=== PATIENT | female | born 1970 | race Caucasian/White ===

== ENCOUNTER 2017-03-04 16:26 | Emergency (ER) | payer MEDICAID, OTHER ==
[~2017-03-04] VITALS: Wt 87.5 kg
[2017-03-04] MEDS ORDERED: KETOROLAC 15 MG INJ IM STA (16:48)
[2017-03-04] MEDS ORDERED: DIAZEPAM 5 MG TAB PO ONE (17:00)
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
[2017-03-04] MEDS ORDERED: DIAZ-90 PO (17:48)
[2017-03-04] MEDS ORDERED: TRAM50TA2 PO (17:48)
[2017-03-04 17:56] VITALS: BP 132/69; PULSE 73; RESP 20; TEMP 98.1
== END 2017-03-04 17:57 | disposition home or self-care (01) ==
LOC: FTE 16:26
DX: M54.5 Low back pain (principal); M54.12 Radiculopathy, cervical region
CPT/HCPCS: J1885; Z7610; 96372

== ENCOUNTER 2017-05-12 16:43 | Emergency (ER) | payer MEDICAID ==
[~2017-05-12] VITALS: Ht 152.4 cm; Wt 87.0 kg
[~2017-05-12 16:43] MED LIST: DIAZ-90 PO; TRAM50TA2 PO
[2017-05-12 16:53] VITALS: Ht 152.4 cm; Wt 87.0 kg
--- NOTE | 2017-05-12 19:01 | ERD ---
ER Documentation Chief Complaint Date/Time DATE: 05/12/17 TIME: 18:56 Chief Complaint right knee/leg pain HPI 46-year-old female presents here in emergency department for complaints of right knee pain that started 2 weeks ago. Patient is morbidly obese, states that the pain just when on suddenly. Patient feels a lump behind the right knee. Patient describes the pain as throbbing pain, 6/10 scale, is worse upon movement. Patient denies any numbness or tingling. Patient took Diclofenac at home with mild relief. ROS All systems reviewed and are negative except as per history of present illness. Medications Home Meds Active Scripts Diazepam* (Valium*) 5 Mg Tablet, 5 MG PO Q8 for myopathy , #10 TAB Prov:VANDA,TOMMY 03/04/17 Tramadol HCl (Tramadol HCl) 50 Mg Tablet, 50 MG PO Q8 Y for PAIN, #20 TAB Prov:VANDA,TOMMY 03/04/17 Allergies Allergies: Coded Allergies: No Known Allergy (Unverified , 03/04/17) PMhx/Soc Medical and Surgical Hx: pt denies Medical Hx, pt denies Surgical Hx History of Surgery: No Anesthesia Reaction: No Hx Neurological Disorder: No Hx Respiratory Disorders: No Hx Cardiac Disorders: No Hx Psychiatric Problems: No Hx Miscellaneous Medical Probl: No Hx Alcohol Use: No Hx Substance Use: No Hx Tobacco Use: No Smoking Status: Never smoker FmHx Family History: No coronary disease, No diabetes, No other Physical Exam Vitals Vital Signs Date Time Temp Pulse Resp B/P Pulse Ox O2 Delivery O2 Flow Rate FiO2 05/12/17 16:53 98.8 72 20 109/73 99 Physical Exam GENERAL: The patient is well developed and appropriate for usual state of health, in no apparent distress. CHEST: Clear to auscultation bilaterally. There are no rales, wheezes or rhonchi. HEART: Regular rate and rhythm. No murmurs, clicks, rubs or gallops. No S3 or S4. ABDOMEN: Soft, nontender and nondistended. Good bowel sounds. No rebound or guarding. No gross peritonitis. No gross organomegaly or masses. No Garza sign or McBurney point tenderness. BACK: No midline or flank tenderness. EXTREMITIES: Equal pulses bilaterally. There is no peripheral clubbing, cyanosis or edema. No focal swelling or erythema. Full range of motion. Grossly neurovascularly intact. NEURO: Alert and oriented. Cranial nerves 2-12 intact. Motor strength in all 4 extremities with 5/5 strength. Sensation grossly intact. Normal speech and gait. SKIN: There is no apparent rash or petechia. The skin is warm and dry. HEMATOLOGIC AND LYMPHATIC: There is no evidence of excessive bruising or lymphedema. No gross cervical, axillary, or inguinal lymphadenopathy. Results 24 hrs PROCEDURE: CR Right Knee CLINICAL INDICATION: Pain TECHNIQUE: An AP, a tunnel and a lateral view were submitted. COMPARISON: None FINDINGS: Osseous Structures: A corticated ossification is seen superior to the anterior tibial plateau in the lateral projection, but no acute fracture or osseous destruction is evident. Join Spaces: The joint spaces are well maintained. No joint effusion is identified. Soft Tissues: The soft tissues appear unremarkable. IMPRESSION: 1. Small corticated ossification seen to projects superior to the anterior tibial plateau on the lateral projection. A tiny loose body cannot be excluded. 2. Otherwise, unremarkable right knee series. Physician Gregoria Date Time Electronically viewed and signed by Physician Gregoria on 05/12/2017 20:11 RH/ CC: CORNELIA ALTAMIRANO [employer] Procedures/MDM Medical Decision Making: Patient's pain is most likely consistent with a knee sprain. There is no suspicion for neurovascular compromise. Patient has intact sensation and circulation of the affected extremity. There is low suspicion for septic arthritis. Patient does not have any fever. Radiology exams of the affected area does not show any fracture or dislocation. Disposition: Home. Patient is given prescription for ibuprofen for pain, [place]. Patient was advised to elevate the affected area and apply ice on affected area. Patient was advised that if symptoms are worse, numbness, tingling, high fever, unable to move joint, worsening symptoms, to return to emergency department immediately. Otherwise, patient is advised to follow up with the primary care doctor in 5-7 days for reevaluation of symptoms. Departure Diagnosis: Primary Impression: Knee pain Laterality: right Chronicity: acute Qualified Code: M25.561 - Acute pain of right knee Condition: Stable Patient Instructions: Knee Pain, Uncertain Cause Additional Instructions: Patient is given prescription for ibuprofen for pain, [place]. Patient was advised to elevate the affected area and apply ice on affected area. Patient was advised that if symptoms are worse, numbness, tingling, high fever, unable to move joint, worsening symptoms, to return to emergency department immediately. Otherwise, patient is advised to follow up with the primary care doctor in 5-7 days for reevaluation of symptoms. CORNELIA ALTAMIRANO NP May 12, 2017 19:00
--- NOTE | 2017-05-12 20:11 | RADRPT ---
PROCEDURE: CR Right Knee CLINICAL INDICATION: Pain TECHNIQUE: An AP, a tunnel and a lateral view were submitted. COMPARISON: None FINDINGS: Osseous Structures: A corticated ossification is seen superior to the anterior tibial plateau in the lateral projection, but no acute fracture or osseous destruction is evident. Join Spaces: The joint spaces are well maintained. No joint effusion is identified. Soft Tissues: The soft tissues appear unremarkable. IMPRESSION: 1. Small corticated ossification seen to projects superior to the anterior tibial plateau on the la teral projection. A tiny loose body cannot be excluded. 2. Otherwise, unremarkable right knee series. Physician Gregoria Date Time Electronically viewed and signed by Thomas Quezada Physician on 05/12/2017 20:11 /
[2017-05-12] MEDS ORDERED: IBUP-1542 PO (20:27)
[2017-05-12] MEDS ORDERED: HYDR-906 PO (20:27)
== END 2017-05-12 20:46 | disposition home or self-care (01) ==
LOC: FTE 16:43
DX: M25.561 Pain in right knee (principal); E66.01 Morbid (severe) obesity due to excess calories; Z68.37 Body mass index [BMI] 37.0-37.9, adult
CPT/HCPCS: 73562; Z7502

== ENCOUNTER 2018-05-19 16:39 | Emergency (ER) | END 2018-05-19 16:50 | disposition left against medical advice (07) ==